=== PATIENT | male | born 1990 | race Caucasian/White ===

== ENCOUNTER 2017-10-08 15:01 | Emergency (ER) | payer SELFPAY ==
[2017-10-08] MEDS ORDERED: Lactated Ringers 1,000 ML IV ONE (15:49)
[2017-10-08] MEDS ORDERED: Metoclopramide 10 MG/2 ML SDV IVPUSH ONE (15:49)
[2017-10-08] MEDS ORDERED: Sodium Chloride 0.9% 10 ML Syringe FLUSH PRN (15:49)
--- NOTE | 2017-10-08 15:53 | EDM.PDOC ---
ED HPI GENERAL MEDICAL PROBLEM - General Chief Complaint: Abdominal Pain Stated Complaint: LOWER ABDOMINAL PAIN Time Seen by Provider: 10/08/17 15:32 Source of Information: Reports: Patient History Limitations: Reports: Language Barrier - History of Present Illness INITIAL COMMENTS - FREE TEXT/NARRATIVE: 26-year-old male presents for evaluation and treatment of right lower quadrant abdominal pain. Patient reports that the pain started last night. He reports associated symptoms of a decreased appetite. No fevers, chills, nausea, vomiting or diarrhea. Reports that the onset was rather gradual. His last bowel movement was yesterday. Denies any urinary symptoms including dysuria or hematuria. Last intake was around 10:30 this morning. No previous abdominal surgeries. Right Lower Abdomen Pain Score (Numeric/FACES): 5 - Related Data Allergies Allergy/AdvReac Type Severity Reaction Status Date / Time No Known Allergies Allergy Verified 10/08/17 15:18 Home Meds: Home Meds Acetaminophen/oxyCODONE [Percocet 325-5 MG] 1 tab PO Q4HR PRN #20 tab 10/08/17 [ Rx] Ondansetron [Zofran ODT] 4 mg PO Q6H PRN #15 tab.dis 10/08/17 [Rx] Sulfamethoxazole/Trimethoprim [Bactrim Ds Tablet] 1 each PO BID #28 tablet 10/08 [Rx] metroNIDAZOLE [Flagyl] 500 mg PO Q8H #42 tab 10/08/17 [Rx] Past Medical History - Past Health History Medical/Surgical History: Denies Medical/Surgical History Social & Family History - Tobacco Use Smoking Status *Q: Never Smoker - Caffeine Use Caffeine Use: Reports: Coffee - Recreational Drug Use Recreational Drug Use: No ED ROS GENERAL - Review of Systems Review Of Systems: See Below Constitutional: Denies: Fever, Chills GI/Abdominal: Reports: Abdominal Pain (RLQ). Denies: Constipation, Diarrhea, Nausea, Vomiting : Reports: No Symptoms. Denies: Dysuria, Hematuria ED EXAM, GI/ABD - Physical Exam Exam: See Below Exam Limited By: No Limitations General Appearance: Alert, WD/WN, No Apparent Distress Respiratory/Chest: No Respiratory Distress, Lungs Clear, Normal Breath Sounds Cardiovascular: Normal Peripheral Pulses, Regular Rate, Rhythm, No Murmur GI/Abdominal Exam: Normal Bowel Sounds, Soft, Tender (mild tenderness at mcburnies poitnt). No: Guarding, Rigid, Rebound Neurological: Alert, Oriented, Normal Cognition Psychiatric: Normal Affect, Normal Mood Skin Exam: Warm, Dry, Normal Color Course - Vital Signs Last Recorded V/S: Last Vital Signs Temp 37.3 C 10/08/17 15:16 Pulse 80 10/08/17 15:16 Resp 16 10/08/17 15:16 BP 133/85 10/08/17 15:16 Pulse Ox 98 10/08/17 15:16 - Orders/Labs/Meds Orders: Active Orders 24 hr Category Date Time Status Peripheral IV Care [RC] . DIRECTED Care 10/08/17 15:49 Active Abdomen Pelvis w Cont [CT] Stat Exams 10/08/17 15:49 Taken UA W/MICROSCOPIC [URIN] Stat Lab 10/08/17 17:10 Ordered Peripheral IV Insertion Adult [OM.PC] Routine Oth 10/08/17 15:49 Ordered Labs: Laboratory Tests 10/08/17 10/08/17 10/08/17 Range/Units 15:55 15:55 17:10 WBC 11.93 H (4.23-9.07) K/mm3 RBC 5.75 (4.63-6.08) M/mm3 Hgb 14.9 (13.7-17.5) gm/L Hct 44.4 (40.1-51.0) % MCV 77.2 L (79.0-92.2) fl MCH 25.9 (25.7-32.2) pg MCHC 33.6 (32.2-35.5) g/dl RDW Std Deviation 40.7 (35.1-43.9) fL Plt Count 321 (163-337) K/mm3 MPV 8.5 L (9.4-12.3) fl Neutrophils % (Manual) 82 H (40-60) % Band Neutrophils % 0 (0-10) % Lymphocytes % (Manual) 13 L (20-40) % Atypical Lymphs % 0 % Monocytes % (Manual) 4 (2-10) % Eosinophils % (Manual) 1 (0.8-7.0) % Basophils % (Manual) 0 L (0.2-1.2) Platelet Estimate Adequate Plt Morphology Comment Normal RBC Morph Comment Normal Sodium 142 (136-145) mEq/L Potassium 3.7 (3.5-5.1) mEq/L Chloride 107 (98-107) mEq/L Carbon Dioxide 26 (21-32) mEq/L Anion Gap 12.7 (5-15) BUN 12 (7-18) mg/dL Creatinine 1.0 (0.7-1.3) mg/dL Est Cr Clr Drug Dosing 116.60 mL/min Estimated GFR (MDRD) > 60 (>60) mL/min BUN/Creatinine Ratio 12.0 L (14-18) Glucose 130 H (74-106) mg/dL Calcium 9.2 (8.5-10.1) mg/dL Total Bilirubin 0.4 (0.2-1.0) mg/dL AST 18 (15-37) U/L ALT 76 H (16-63) U/L Alkaline Phosphatase 84 (46-116) U/L C-Reactive Protein 1.3 H* (<1.0) mg/dL Total Protein 7.6 (6.4-8.2) g/dl Albumin 4.2 (3.4-5.0) g/dl Globulin 3.4 gm/dL Albumin/Globulin Ratio 1.2 (1-2) Urine Color Light yellow (Yellow) Urine Appearance Clear (Clear) Urine pH 7.5 (5.0-8.0) Ur Specific [place] 1.015 (1.005-1.030) Urine Protein Negative (Negative) Urine Glucose (UA) Negative (Negative) Urine Ketones Negative (Negative) Urine Occult Blood Negative (Negative) Urine Nitrite Negative (Negative) Urine Bilirubin Negative (Negative) Urine Urobilinogen 0.2 (0.2-1.0) Ur Leukocyte Esterase Negative (Negative) Urine RBC Not seen (0-5) /hpf Urine WBC Not seen (0-5) /hpf Ur Epithelial Cells 0-5 (0-5) /hpf Urine Bacteria Not seen (FEW) /hpf Urine Mucus Not seen (FEW) /hpf Meds: Medications Discontinued Medications Generic Name Dose Route Start Last Admin Trade Name Freq PRN Reason Stop Dose Admin Diatrizoate Meglum/Diatrizoate Sod 90 ml 10/08/17 15:55 10/08/17 16:49 Gastrografin 37% PO 10/08/17 15:56 90 ml ONETIME ONE Administration Lactated Ringer's 1,000 mls @ 999 mls/hr 10/08/17 15:49 10/08/17 16:08 Ringers, Lactated IV 10/08/17 16:49 999 mls/hr .BOLUS ONE Administration Cefoxitin Sodium 2 gm/ Premix 50 mls @ 100 mls/hr 10/08/17 17:28 10/08/17 17: 45 IV 10/08/17 17:57 100 mls/hr ONETIME ONE Administration Ertapenem 1 gm/ Sodium 100 mls @ 200 mls/hr 10/08/17 17:47 10/08/17 18:28 Chloride IV 10/08/17 18:16 200 mls/hr ONETIME ONE Administration Iopamidol 125 ml 10/08/17 15:55 10/08/17 16:51 Isovue-300 (61%) IVPUSH 10/08/17 15:56 125 ml ONETIME ONE Administration Metoclopramide HCl 5 mg 10/08/17 15:49 10/08/17 16:09 Reglan IVPUSH 10/08/17 15:50 5 mg ONETIME ONE Administration Sodium Chloride 10 ml 10/08/17 15:49 10/08/17 16:09 Saline Flush FLUSH 10 ml ASDIRECTED PRN Administration Keep Vein Open Sodium Chloride 10 ml 10/08/17 15:55 10/08/17 16:51 Saline Flush FLUSH 10/08/17 15:56 10 ml ONETIME ONE Administration - Re-Assessments/Exams Free Text/Narrative Re-Assessment/Exam: 10/08/17 17:31 Patient was offered pain medication throughout his ER stay and he declined. I reviewed the labs and imaging with the patient. I discussed the case with Dr. Hankins, surgeon wound care center consultant. He will come in and see the patient. 2 g IV cefoxitin ordered. 10/08/17 17:50 Dr. Hankins has seen the patient and evaluated him. Offered surgical appendectomy versus anabiotic treatment. Patient elected to take antibiotics. Plan will be to give him a gram of Invanz here in the ER. He will then be started on Bactrim double strength twice a day for 14 days and Flagyl 500 mg 3 times a day for 14 days. He is to follow-up with Dr. Hankins on . 10/08/17 19:00 Patient has received 2 g IV cefoxitin and 1 g IV Invanz. I will give him some pain medication and nausea medication as needed. He is instructed to return to the ER for symptoms change or worsen. Follow-up with Dr. Hankins on Wednesday. Discharge instructions as documented. Departure - Departure Time of Disposition: 19:05 Disposition: Home, Self-Care 01 Condition: Fair Clinical Impression: Appendicitis, acute - Discharge Information Prescriptions: Acetaminophen/oxyCODONE [Percocet 325-5 MG] 1 tab PO Q4HR PRN #20 tab PRN Reason: Pain metroNIDAZOLE [Flagyl] 500 mg PO Q8H #42 tab Ondansetron [Zofran ODT] 4 mg PO Q6H PRN #15 tab.dis PRN Reason: Nausea Sulfamethoxazole/Trimethoprim [Bactrim Ds Tablet] 1 each PO BID #28 tablet Instructions: Appendicitis, Jroy-ud-Ewos Referrals: PCP,None [Primary Care Provider] - Vern Hankins MD [Physician] - Forms: ED Department Discharge Additional Instructions: Take the Bactrim 1 tab twice a day for 14 days. Take the Flagyl 1 tab 3 times a day for 14 days. Recommend starting a probiotic. These are available over-the- counter. Clear fluids and bland diet as tolerated. Percocet 1 or 2 tabs every 4-6 hours as needed for severe pain. Do not drive or operate machinery within 12 hours of taking Percocet. Percocet is habit-forming , take as few of these as needed to control your pain. Zofran 1 tab sublingual every 6 hours as needed for nausea. Follow-up with Dr. Hankins in clinic on . Call Wednesday to see what time he would like you there. Call [phone] for appointment time. Please return to the ER if your symptoms change or worsen.. - My Orders Last 24 Hours: My Active Orders 10/08/17 15:49 Peripheral IV Care [RC] . DIRECTED Abdomen Pelvis w Cont [CT] Stat Peripheral IV Insertion Adult [OM.PC] Routine 10/08/17 17:10 UA W/MICROSCOPIC [URIN] Stat - Assessment/Plan Last 24 Hours: My Active Orders 10/08/17 15:49 Peripheral IV Care [RC] . DIRECTED Abdomen Pelvis w Cont [CT] Stat Peripheral IV Insertion Adult [OM.PC] Routine 10/08/17 17:10 UA W/MICROSCOPIC [URIN] Stat
[2017-10-08] MEDS ORDERED: Sodium Chloride 0.9% 10 ML Syringe FLUSH ONE (15:55)
[2017-10-08] MEDS ORDERED: Diatrizoate Meglumine/Diatrizoate Sodium 37% 120 ML Bottle PO ONE (15:55)
[2017-10-08] MEDS ORDERED: Iopamidol 612 MG/ML 150 ML Bottle IVPUSH ONE (15:55)
[2017-10-08] MEDS ORDERED: cefOXitin 2 GM in Premix Bag 1 BAG IV ONE (17:28)
[2017-10-08] MEDS ORDERED: Ertapenem 1 GM in Sodium Chloride 0.9% 100 ML IV ONE (17:47)
--- NOTE | 2017-10-08 17:59 | PCM.CONS ---
H&P History of Present Illness - General Date of Service: 10/08/17 Source of Information: Patient, Clinical Laboratory Scientist - History of Present Illness Initial Comments - Free Text/Narative: 26-year-old male experienced right lower quadrant abdominal discomfort beginning yesterday evening. This was associated with a slight decrease in appetite but he denied nausea, emesis, and diarrhea. He also denied dysuria and local trauma. He's had no fevers or chills. He mentioned the discomfort to his colleague who recommended that he be seen by someone and so he presented to the emergency room this afternoon. He was evaluated by staff which ultimately led to a CT scan of his abdomen that demonstrated imaging features consistent with early appendicitis. I was asked to see him in consultation. Right Lower Abdomen Pain Score (Numeric/FACES): 5 - Related Data Allergies/Adverse Reactions: Allergies Allergy/AdvReac Type Severity Reaction Status Date / Time No Known Allergies Allergy Verified 10/08/17 15:18 Home Medications: Home Meds . [No Known Home Meds] 10/08/17 [History] Past Medical History - Past Health History Medical/Surgical History: Denies Medical/Surgical History Social & Family History - Tobacco Use Smoking Status *Q: Never Smoker - Caffeine Use Caffeine Use: Reports: Coffee - Recreational Drug Use Recreational Drug Use: No H&P Review of Systems - Review of Systems: Review Of Systems: ROS reveals no pertinent complaints other than HPI. Exam - Exam Exam: See Below - Vital Signs Vital Signs: Last Vital Signs Temp 37.3 C 10/08/17 15:16 Pulse 80 10/08/17 15:16 Resp 16 10/08/17 15:16 BP 133/85 10/08/17 15:16 Pulse Ox 98 10/08/17 15:16 Weight: 97.522 kg - Exam General: Alert, Oriented, Cooperative HEENT: EOMI, Hearing Intact Neck: Supple, Trachea Midline Lungs: Clear to Auscultation, Normal Respiratory Effort Cardiovascular: Regular Rate, Regular Rhythm, Normal S1, Normal S2 GI/Abdominal Exam: Normal Bowel Sounds, Soft, Other (Minimal tenderness to deep outpatient at McBurney's point) (Male) Exam: Deferred Rectal (Males) Exam: Normal Exam Extremities: Normal Range of Motion, Non-Tender Skin: Warm, Dry, Intact Psychiatric: Alert, Normal Affect, Normal Mood - Patient Data Lab Results Last 24 hrs: Laboratory Results - last 24 hr 10/08/17 10/08/17 10/08/17 Range/Units 15:55 15:55 17:10 WBC 11.93 H (4.23-9.07) K/mm3 RBC 5.75 (4.63-6.08) M/mm3 Hgb 14.9 (13.7-17.5) gm/L Hct 44.4 (40.1-51.0) % MCV 77.2 L (79.0-92.2) fl MCH 25.9 (25.7-32.2) pg MCHC 33.6 (32.2-35.5) g/dl RDW Std Deviation 40.7 (35.1-43.9) fL Plt Count 321 (163-337) K/mm3 MPV 8.5 L (9.4-12.3) fl Neutrophils % (Manual) 82 H (40-60) % Band Neutrophils % 0 (0-10) % Lymphocytes % (Manual) 13 L (20-40) % Atypical Lymphs % 0 % Monocytes % (Manual) 4 (2-10) % Eosinophils % (Manual) 1 (0.8-7.0) % Basophils % (Manual) 0 L (0.2-1.2) Platelet Estimate Adequate Plt Morphology Comment Normal RBC Morph Comment Normal Sodium 142 (136-145) mEq/L Potassium 3.7 (3.5-5.1) mEq/L Chloride 107 (98-107) mEq/L Carbon Dioxide 26 (21-32) mEq/L Anion Gap 12.7 (5-15) BUN 12 (7-18) mg/dL Creatinine 1.0 (0.7-1.3) mg/dL Est Cr Clr Drug Dosing 116.60 mL/min Estimated GFR (MDRD) > 60 (>60) mL/min BUN/Creatinine Ratio 12.0 L (14-18) Glucose 130 H (74-106) mg/dL Calcium 9.2 (8.5-10.1) mg/dL Total Bilirubin 0.4 (0.2-1.0) mg/dL AST 18 (15-37) U/L ALT 76 H (16-63) U/L Alkaline Phosphatase 84 (46-116) U/L C-Reactive Protein 1.3 H* (<1.0) mg/dL Total Protein 7.6 (6.4-8.2) g/dl Albumin 4.2 (3.4-5.0) g/dl Globulin 3.4 gm/dL Albumin/Globulin Ratio 1.2 (1-2) Urine Color Light yellow (Yellow) Urine Appearance Clear (Clear) Urine pH 7.5 (5.0-8.0) Ur Specific [place] 1.015 (1.005-1.030) Urine Protein Negative (Negative) Urine Glucose (UA) Negative (Negative) Urine Ketones Negative (Negative) Urine Occult Blood Negative (Negative) Urine Nitrite Negative (Negative) Urine Bilirubin Negative (Negative) Urine Urobilinogen 0.2 (0.2-1.0) Ur Leukocyte Esterase Negative (Negative) Urine RBC Not seen (0-5) /hpf Urine WBC Not seen (0-5) /hpf Ur Epithelial Cells 0-5 (0-5) /hpf Urine Bacteria Not seen (FEW) /hpf Urine Mucus Not seen (FEW) /hpf Result Diagrams: 10/08/17 15:55 10/08/17 15:55 Consult PN Assessment/Plan (1) Appendicitis, acute SNOMED Code(s): 09785044 Code(s): K35.80 - UNSPECIFIED ACUTE APPENDICITIS Priority: Medium Current Visit: Yes Assessment:: Patient has minimal symptomatology but does have an elevated white count of 11.9 thousand. It was recommended that he have a laparoscopic appendectomy but because of financial reasons he declined and preferred to proceed with antibiotic therapy alone. This was after he was told that the success rates with antibiotics was about 85% with an early recurrence within a year or so approaching 30%. He was also informed that this process could re-present as a complicated appendicitis but he was willing to accept the risk. Problem List Initiated/Reviewed/Updated: Yes Plan: Bactrim DS by mouth twice a day for 14 days Flagyl. 500 mg every 8 hours for 14 days. Follow-up in my office in about a week. Patient was asked to report to the emergency room as soon as possible if he felt he wasn't getting better.
--- NOTE | 2017-10-10 14:14 | CT ---
CT abdomen and pelvis Technique: Multiple axial sections were obtained from above the dome of the diaphragm inferiorly through the pubic symphysis. Intravenous and oral contrast was utilized. Delayed images were obtained through the bladder. Comparison: No prior abdominal imaging. Findings: Inflammatory change is seen around the dilated appendix compatible with appendicitis. Visualized lung bases are clear. Liver shows no focal parenchymal abnormality. Spleen appears within normal limits. Adrenal glands show no nodule. Pancreas appears normal. Kidneys show symmetric contrast enhancement without hydronephrosis or mass. Gallbladder contains no calcified gallstones. Aorta shows no aneurysmal dilatation. No retroperitoneal adenopathy or mesenteric abnormalities are seen. No pelvic mass or adenopathy is identified. Delayed images show contrast within the distal ureters and within the bladder. Minimal amount of free fluid is seen within the pelvis. Bone window settings were reviewed which appear within normal limits for the patient's age. Impression: 1. Findings compatible with appendicitis. 2. Minimal fluid within the pelvis which may be physiologic or possibly reactive from the appendicitis. 3. No other acute abnormality seen on CT study of the abdomen and pelvis. Diagnostic code #5 I agree with preliminary report issued by [facility] (10/08/17, 6:12 PM Central Time)
== END 2017-10-08 19:22 | disposition home or self-care (01) ==
LOC: JD.ED 15:01
DX: K35.80 Unspecified acute appendicitis (principal); Z79.899 Other long term (current) drug therapy
CPT/HCPCS: 36415; 74177; 80053; 81001; 85007; 85027; 86140; 96361; 96365; 96367; 96375; 99285; J0694; J1335; J2765; J7030; J7050; J7120; Q9963; Q9967; 99284

== ENCOUNTER 2022-09-11 22:04 | Emergency (ER) | payer SELFPAY ==
[2022-09-11] MEDS ORDERED: Proparacaine 0.5% Ophth Soln 15 ML Bottle EYELF STA (22:36)
[2022-09-11] MEDS ORDERED: Fluorescein 1 MG Ophth Strip EYELF STA (22:36)
== END 2022-09-11 22:58 | disposition home or self-care (01) ==
LOC: JD.ED 22:04
DX: T15.92XA Foreign body on external eye, part unspecified, left eye, initial encounter (principal)
CPT/HCPCS: 99283; J3490

== ENCOUNTER 2024-08-14 13:29 | Inpatient (IN) | payer OTHER ==
[2024-08-14] MEDS ORDERED: Sodium Chloride 0.9% 10 ML Syringe FLUSH PRN ×2 (14:04→14:42)
[2024-08-14 14:42] LABS: HEMATOCRIT 43.3 % (42.0-52.0); HEMOGLOBIN 14.4 gm/dl (14.0-18.0); MEAN CORPUSCULAR HEMOGLOBIN 25.4 pg (28.0-32.0); MEAN CORPUSCULAR HGB CONC 33.3 g/dl (32.0-36.0); MEAN CORPUSCULAR VOLUME 76.4 fl (83.0-99.0); MEAN PLATELET VOLUME 8.2 fl (9.4-12.4); PLATELET COUNT,PLT 390 K/mm3 (150-400); RED BLOOD CELL COUNT 5.67 M/mm3 (4.52-5.90); WHITE BLOOD CELL COUNT,WBC 10.12 K/mm3 (3.9-11.3)
[2024-08-14] MEDS: Sodium Chloride 0.9% 1,000 ML IV ONE (15:08)
[2024-08-14] MEDS: Piperacillin/Tazobactam 4.5 GM in Sodium Chloride 0.9% 100 ML IV ONE (15:08)
[2024-08-14 15:25] LABS: LACTIC ACID 1.1 mmol/L (0.4-2.0)
[2024-08-14 15:31] LABS: A/G RATIO 0.6 (1-2); ALBUMIN 3.1 g/dl (3.4-5.0); ANION GAP 11.9 (5-15); BILIRUBIN TOTAL 0.4 mg/dL (0.2-1.0); BUN/CREATININE RATIO 16.4 (14-18); C-REACTIVE PROTEIN 4.52 mg/dL (<0.30); CREATININE 1.1 mg/dL (0.7-1.3); EST CRCL DRUG DOSING (CG) 99.55 mL/min; POTASSIUM,K 3.9 mEq/L (3.5-5.1)
[2024-08-14 15:39] LABS: BICARBONATE,VENOUS 22.1 meq/L (22-26); O2 SATURATION VENOUS 39; PCO2 VENOUS 37.7 mmHg (41-51); PH,VENOUS 7.37 (7.30-7.40)
[2024-08-14 15:45] LABS: BAND PERCENT MAN 0 % (0-10); BASOPHILS PERCENT MAN 1 (0.2-1.2); EOSINOPHILS PERCENT MAN 3 % (0.8-7.0); LYMPHOCYTES % ATYPICAL MANUAL 2 %; LYMPHOCYTES PERCENT MAN 21 % (20-40); MONOCYTES PERCENT MAN 3 % (2-10)
[2024-08-14 15:49] LABS: INR 1.08; PROTHROMBIN TIME 11.4 SECONDS (9.7-12.0)
[2024-08-14 15:52] LABS: MICROCYTOSIS 1+ SLIGHT
[2024-08-14 15:54] LABS: HYPOCHROMASIA FEW; PLATELET COUNT ESTIMATE ADEQUATE
[2024-08-14 18:53] LABS: APPEARANCE,URINE CLEAR (Clear); BILIRUBIN,URINE NEGATIVE (Negative); COLOR,URINE YELLOW (Yellow); GLUCOSE,URINE NEGATIVE (Negative); KETONES,URINE NEGATIVE (Negative); LEUKOCYTE ESTERASE,URINE NEGATIVE (Negative); NITRITE,URINE NEGATIVE (Negative); OCCULT BLOOD,URINE NEGATIVE (Negative); PH,URINE 5.5 (5.0-8.0); PROTEIN,URINE NEGATIVE (Negative); UROBILINOGEN,URINE 0.2 (0.2-1.0)
[2024-08-14] MEDS ORDERED: Albuterol/Ipratropium 3.0-0.5 MG/3 ML Neb Soln NEB PRN (19:48)
[2024-08-14] MEDS ORDERED: oxyCODONE 5 MG Tab PO PRN (19:52)
[2024-08-14] MEDS ORDERED: Sennosides/Docusate Sodium 50-8.6 MG Tab PO PRN (19:52)
[2024-08-14] MEDS ORDERED: Acetaminophen 325 MG Tab PO PRN (19:52)
[2024-08-14] MEDS ORDERED: Ondansetron 4 MG/2 ML SDV IV PRN (19:52)
[2024-08-14] MEDS: cefTRIAXone 1 GM Vial IVPUSH SCH (20:14)
[2024-08-15 04:54] LABS: BASOPHILS ABSOLUTE AUTO 0.1 K/mm3 (0.0-0.2); BASOPHILS PERCENT AUTO 0.5 % (0.0-1.0); EOSINOPHILS ABSOLUTE AUTO 0.4 K/mm3 (0.0-0.4); EOSINOPHILS PERCENT AUTO 3.6 % (0.0-6.0); HEMATOCRIT 41.4 % (42.0-52.0); HEMOGLOBIN 13.3 gm/dl (14.0-18.0); IMMATURE GRAN ABSOLUTE AUTO 0.34 K/mm3 (0.00-0.05); IMMATURE GRAN PERCENT AUTO 3.1 % (0.0-0.4); LYMPHOCYTES ABSOLUTE AUTO 2.3 K/mm3 (1.0-4.8); LYMPHOCYTES PERCENT AUTO 20.6 % (24.0-44.0); MEAN CORPUSCULAR HEMOGLOBIN 24.9 pg (28.0-32.0); MEAN CORPUSCULAR HGB CONC 32.1 g/dl (32.0-36.0); MEAN CORPUSCULAR VOLUME 77.5 fl (83.0-99.0); MEAN PLATELET VOLUME 8.5 fl (9.4-12.4); MONOCYTES ABSOLUTE AUTO 1.2 K/mm3 (0.0-0.8); MONOCYTES PERCENT AUTO 10.7 % (0.0-8.0); NEUTROPHILS ABSOLUTE AUTO 6.8 K/mm3 (1.8-7.7); NEUTROPHILS PERCENT AUTO 61.5 % (41.0-71.0); PLATELET COUNT,PLT 372 K/mm3 (150-400); RED BLOOD CELL COUNT 5.34 M/mm3 (4.52-5.90); WHITE BLOOD CELL COUNT,WBC 11.11 K/mm3 (3.9-11.3)
[2024-08-15 05:46] LABS: A/G RATIO 0.6 (1-2); ALBUMIN 2.6 g/dl (3.4-5.0); ANION GAP 11.3 (5-15); BILIRUBIN TOTAL 0.3 mg/dL (0.2-1.0); BUN/CREATININE RATIO 18.2 (14-18); C-REACTIVE PROTEIN 3.16 mg/dL (<0.30); CALCIUM 8.6 mg/dL (8.5-10.1); CREATININE 1.1 mg/dL (0.7-1.3); EST CRCL DRUG DOSING (CG) 99.55 mL/min; POTASSIUM,K 4.3 mEq/L (3.5-5.1); PROTEIN TOTAL,TP 6.9 g/dl (6.4-8.2)
[2024-08-15] MEDS: Enoxaparin 40 MG/0.4 ML Syringe SUBCUT SCH (08:27)
[2024-08-15] MEDS: Azithromycin 500 MG in Sodium Chloride 0.9% 250 ML IV SCH (09:44)
[2024-08-15] MEDS ORDERED: Albuterol 0.083% 2.5 MG/3 ML Neb Soln NEB PRN (12:52)
[2024-08-15] MEDS: Albuterol/Ipratropium 3.0-0.5 MG/3 ML Neb Soln NEB SCH (14:14)
[2024-08-15] MEDS: guaiFENesin/Dextromethorphan 100-10 MG/5 ML Soln 5 ML Cup PO SCH (14:27)
[2024-08-16 04:48] LABS: BASOPHILS ABSOLUTE AUTO 0.1 K/mm3 (0.0-0.2); BASOPHILS PERCENT AUTO 0.4 % (0.0-1.0); EOSINOPHILS ABSOLUTE AUTO 0.3 K/mm3 (0.0-0.4); EOSINOPHILS PERCENT AUTO 2.3 % (0.0-6.0); HEMATOCRIT 43.3 % (42.0-52.0); HEMOGLOBIN 14.1 gm/dl (14.0-18.0); IMMATURE GRAN ABSOLUTE AUTO 0.37 K/mm3 (0.00-0.05); IMMATURE GRAN PERCENT AUTO 3.3 % (0.0-0.4); LYMPHOCYTES ABSOLUTE AUTO 2.2 K/mm3 (1.0-4.8); LYMPHOCYTES PERCENT AUTO 19.7 % (24.0-44.0); MEAN CORPUSCULAR HEMOGLOBIN 25.8 pg (28.0-32.0); MEAN CORPUSCULAR HGB CONC 32.6 g/dl (32.0-36.0); MEAN CORPUSCULAR VOLUME 79.3 fl (83.0-99.0); MEAN PLATELET VOLUME 8.5 fl (9.4-12.4); MONOCYTES PERCENT AUTO 8.4 % (0.0-8.0); NEUTROPHILS ABSOLUTE AUTO 7.4 K/mm3 (1.8-7.7); NEUTROPHILS PERCENT AUTO 65.9 % (41.0-71.0); PLATELET COUNT,PLT 382 K/mm3 (150-400); RED BLOOD CELL COUNT 5.46 M/mm3 (4.52-5.90); WHITE BLOOD CELL COUNT,WBC 11.26 K/mm3 (3.9-11.3)
[2024-08-16 05:36] LABS: A/G RATIO 0.6 (1-2); ALBUMIN 2.7 g/dl (3.4-5.0); ANION GAP 12.4 (5-15); BILIRUBIN TOTAL 0.3 mg/dL (0.2-1.0); C-REACTIVE PROTEIN 2.19 mg/dL (<0.30); CALCIUM 8.9 mg/dL (8.5-10.1); CREATININE 1.1 mg/dL (0.7-1.3); EST CRCL DRUG DOSING (CG) 99.55 mL/min; MAGNESIUM 2.3 mg/dL (1.8-2.4); POTASSIUM,K 4.4 mEq/L (3.5-5.1); PROTEIN TOTAL,TP 7.1 g/dl (6.4-8.2)
[2024-08-16] MEDS ORDERED: Sodium Chloride 0.9% 10 ML Syringe FLUSH PRN (10:07)
[2024-08-16] MEDS: Sodium Chloride 0.9% 100 ML IV SCH (10:36)
[2024-08-16] MEDS: Iopamidol 755 Mg/ML 100 ML Bottle IVPUSH ONE (10:36)
[2024-08-16] MEDS: Albuterol/Ipratropium 3.0-0.5 MG/3 ML Neb Soln NEB SCH (14:05)
[2024-08-16] MEDS: cefTRIAXone 2 GM Vial IVPUSH SCH (20:23)
[2024-08-17 04:40] LABS: BASOPHILS ABSOLUTE AUTO 0.1 K/mm3 (0.0-0.2); BASOPHILS PERCENT AUTO 0.5 % (0.0-1.0); EOSINOPHILS ABSOLUTE AUTO 0.2 K/mm3 (0.0-0.4); EOSINOPHILS PERCENT AUTO 1.8 % (0.0-6.0); HEMATOCRIT 44.4 % (42.0-52.0); HEMOGLOBIN 14.1 gm/dl (14.0-18.0); IMMATURE GRAN ABSOLUTE AUTO 0.29 K/mm3 (0.00-0.05); IMMATURE GRAN PERCENT AUTO 2.3 % (0.0-0.4); LYMPHOCYTES ABSOLUTE AUTO 2.7 K/mm3 (1.0-4.8); LYMPHOCYTES PERCENT AUTO 21.9 % (24.0-44.0); MEAN CORPUSCULAR HEMOGLOBIN 25.1 pg (28.0-32.0); MEAN CORPUSCULAR HGB CONC 31.8 g/dl (32.0-36.0); MEAN CORPUSCULAR VOLUME 79.1 fl (83.0-99.0); MEAN PLATELET VOLUME 8.4 fl (9.4-12.4); MONOCYTES ABSOLUTE AUTO 0.8 K/mm3 (0.0-0.8); MONOCYTES PERCENT AUTO 6.6 % (0.0-8.0); NEUTROPHILS ABSOLUTE AUTO 8.3 K/mm3 (1.8-7.7); NEUTROPHILS PERCENT AUTO 66.9 % (41.0-71.0); PLATELET COUNT,PLT 411 K/mm3 (150-400); RED BLOOD CELL COUNT 5.61 M/mm3 (4.52-5.90); WHITE BLOOD CELL COUNT,WBC 12.35 K/mm3 (3.9-11.3)
[2024-08-17 05:05] LABS: A/G RATIO 0.7 (1-2); ALBUMIN 2.8 g/dl (3.4-5.0); ANION GAP 13.5 (5-15); BILIRUBIN TOTAL 0.5 mg/dL (0.2-1.0); BUN/CREATININE RATIO 15.5 (14-18); C-REACTIVE PROTEIN 1.31 mg/dL (<0.30); CALCIUM 8.7 mg/dL (8.5-10.1); CREATININE 1.1 mg/dL (0.7-1.3); EST CRCL DRUG DOSING (CG) 99.55 mL/min; MAGNESIUM 2.2 mg/dL (1.8-2.4); POTASSIUM,K 4.5 mEq/L (3.5-5.1)
[2024-08-17] MEDS: Piperacillin/Tazobactam 4.5 GM in Sodium Chloride 0.9% 100 ML IV ONE (09:33)
[2024-08-17] MEDS: methylPREDNISolone Sodium Succinate 125 MG/2 ML SDV IVPUSH ONE (09:33)
[2024-08-17] MEDS: Piperacillin/Tazobactam 4.5 GM in Sodium Chloride 0.9% 100 ML IV SCH (17:10)
[2024-08-18 05:26] LABS: A/G RATIO 0.7 (1-2); ALBUMIN 2.7 g/dl (3.4-5.0); ANION GAP 18.1 (5-15); BILIRUBIN TOTAL 0.3 mg/dL (0.2-1.0); BUN/CREATININE RATIO 22.7 (14-18); C-REACTIVE PROTEIN 0.75 mg/dL (<0.30); CALCIUM 8.6 mg/dL (8.5-10.1); CREATININE 1.1 mg/dL (0.7-1.3); EST CRCL DRUG DOSING (CG) 99.55 mL/min; MAGNESIUM 2.1 mg/dL (1.8-2.4); POTASSIUM,K 4.1 mEq/L (3.5-5.1); PROTEIN TOTAL,TP 6.6 g/dl (6.4-8.2)
[2024-08-18 05:27] LABS: BASOPHILS PERCENT AUTO 0.2 % (0.0-1.0); EOSINOPHILS PERCENT AUTO 0.1 % (0.0-6.0); HEMATOCRIT 41.8 % (42.0-52.0); HEMOGLOBIN 13.3 gm/dl (14.0-18.0); LYMPHOCYTES ABSOLUTE AUTO 1.8 K/mm3 (1.0-4.8); LYMPHOCYTES PERCENT AUTO 11.9 % (24.0-44.0); MEAN CORPUSCULAR HEMOGLOBIN 25.2 pg (28.0-32.0); MEAN CORPUSCULAR HGB CONC 31.8 g/dl (32.0-36.0); MEAN CORPUSCULAR VOLUME 79.3 fl (83.0-99.0); MEAN PLATELET VOLUME 8.7 fl (9.4-12.4); MONOCYTES PERCENT AUTO 6.9 % (0.0-8.0); NEUTROPHILS ABSOLUTE AUTO 11.7 K/mm3 (1.8-7.7); NEUTROPHILS PERCENT AUTO 78.9 % (41.0-71.0); PLATELET COUNT,PLT 433 K/mm3 (150-400); RED BLOOD CELL COUNT 5.27 M/mm3 (4.52-5.90); WHITE BLOOD CELL COUNT,WBC 14.89 K/mm3 (3.9-11.3)
[2024-08-18] MEDS: predniSONE 20 MG Tab PO ONE (09:47)
[2024-08-18 11:47] LABS: BORDETELLA PARAPERT IS1001 Not Detected (Not Detected)
[2024-08-18] MEDS: Melatonin 3 MG Tab PO PRN (21:56)
[2024-08-19 06:02] LABS: BASOPHILS PERCENT AUTO 0.3 % (0.0-1.0); EOSINOPHILS ABSOLUTE AUTO 0.1 K/mm3 (0.0-0.4); EOSINOPHILS PERCENT AUTO 0.6 % (0.0-6.0); HEMATOCRIT 40.8 % (42.0-52.0); HEMOGLOBIN 12.8 gm/dl (14.0-18.0); IMMATURE GRAN PERCENT AUTO 1.4 % (0.0-0.4); LYMPHOCYTES ABSOLUTE AUTO 3.4 K/mm3 (1.0-4.8); LYMPHOCYTES PERCENT AUTO 24.4 % (24.0-44.0); MEAN CORPUSCULAR HGB CONC 31.4 g/dl (32.0-36.0); MEAN CORPUSCULAR VOLUME 79.5 fl (83.0-99.0); MEAN PLATELET VOLUME 8.4 fl (9.4-12.4); MONOCYTES ABSOLUTE AUTO 0.8 K/mm3 (0.0-0.8); MONOCYTES PERCENT AUTO 5.4 % (0.0-8.0); NEUTROPHILS ABSOLUTE AUTO 9.5 K/mm3 (1.8-7.7); NEUTROPHILS PERCENT AUTO 67.9 % (41.0-71.0); PLATELET COUNT,PLT 424 K/mm3 (150-400); RED BLOOD CELL COUNT 5.13 M/mm3 (4.52-5.90); WHITE BLOOD CELL COUNT,WBC 13.95 K/mm3 (3.9-11.3)
[2024-08-19] MEDS: predniSONE 20 MG Tab PO SCH (06:15)
[2024-08-19 06:27] LABS: C-REACTIVE PROTEIN 0.39 mg/dL (<0.30)
== END 2024-08-20 12:54 | disposition home or self-care (01) | DRG 193 ==
LOC: JD.ED 13:29 → JD.MS 18:29
PROVIDERS: ADMIT Student in an Organized Health Care Education/Training Program; ATTEND Student in an Organized Health Care Education/Training Program
DX: J18.9 Pneumonia, unspecified organism (principal); J96.01 Acute respiratory failure with hypoxia; B34.8 Other viral infections of unspecified site; J45.909 Unspecified asthma, uncomplicated; K37 Unspecified appendicitis; G44.209 Tension-type headache, unspecified, not intractable; Z79.899 Other long term (current) drug therapy
CPT/HCPCS: 36415; 70450; 70450-26; 71046; 71046-26; 71275; 71275-26; 80053; 81003; 82803; 83605; 83735; 83880; 84100; 84484; 85007; 85025; 85027; 85610; 85730; 86140; 86738; 87040; 87102; 87428-QW; 87486; 87581; 87633; 87641; 94640; 94667; 94668; 94761; 96361; 96365; 99285; 99285-25; A9270-GY; J0456; J0696; J1650; J2543; J2919; J7030; J7512; Q9967